=== PATIENT | male | born 1955 | race Two or more races ===

== ENCOUNTER 2024-05-03 13:53 | Outpatient (RCR) | payer MEDICARE, SELFPAY | END 2024-05-03 23:59 | disposition home or self-care (01) | LOC: CPTX 13:53 | PROVIDERS: PCP Student in an Organized Health Care Education/Training Program; Referring Provider Student in an Organized Health Care Education/Training Program; Visit Provider Student in an Organized Health Care Education/Training Program | DX: Z53.8 Procedure and treatment not carried out for other reasons (principal) ==

== ENCOUNTER → 2024-09-24 | Outpatient (CLI) | payer MEDICARE, SELFPAY ==
--- NOTE | 2024-09-24 12:20 | XR_ITS ---
Examination: Shoulder,left, 3 views Technique: Shoulder AP internal rotation, AP external rotation, Y view shoulder, 3 views Exam date and time :September 24, 2024 1345 hours INDICATIONS: Left shoulder pain beginning 2 years ago. FINDINGS: Prominent osteopenia Moderate narrowing glenohumeral joint No fracture or shoulder dislocation IMPRESSION: Moderate narrowing glenohumeral joint
== END | disposition home or self-care (01) ==
PROVIDERS: PCP Nurse Practitioner Family; Referring Provider Nurse Practitioner Family; Visit Provider Nurse Practitioner Family
DX: M25.812 Other specified joint disorders, left shoulder (principal)
CPT/HCPCS: 73030

== ENCOUNTER 2024-09-28 13:00 | Outpatient (RCR) | payer MEDICARE, SELFPAY ==
--- NOTE | 2024-09-14 13:12 | PT.OIERPT ---
PT OP Initial Eval Patient Information Outpatient Physical Therapy Treatment Date: 09/14/24 Visit Reasons: Cerebrovascular accident Medical Diagnosis: I69.354 Treatment Dx #1: CVA with L hemiplegia Start of Care: 09/14/24 Date of Onset: October 2022 Smoking Status Smoking Status: Never smoker Initial Assessment Subjective: Pt is 68 yr old male here with his caregiver who lives with him and helps with all ADL's, meals, etc. Caregiver says he can lift the L LE better since she started working with him. Pt can't move the L hand but can move the shoulder. He needs hand support to stand and transfer from W/C to bed. He uses bedside commode. Prior to CVA the pt was ambulatory and independent with ADL's. PMH: CVA, HTN, DM Pt goal: I want to get out of the W/C and do something with my life and take care of myself Objective: Transfers: Sit in W/C to mat table: modAx1 and gait belt Supine to sit: minAx1 on R side for LE management L ankle AROM: Resting in 30 deg of PF, unable to actively dorsiflex L knee AROM: Flexion: 90 deg Extension: from 90 deg resting to about -40 deg extension but can't hold isometrically against gravity Babinski: positive L Clonus: negative L UE: flaccid, no AROM Gait: NT due to L knee weakness HS strength: 3-/5 Quad strength: 3-/5 Assessment: Pt presentation consistent with CVA and L hemiplegia. L UE is flaccid and limited to about 90 deg FF and abduction with PROM. Pt has limited active ROM of L LE and is modAx1 with transfers without R hand support. With hand support he's minAx1. Pt?requires skilled therapy in order to need less assist with transfers and has fair rehab potential limited by flaccid L UE and paralysis of L LE. Short Term and Delinquent Notice Machine Operator Goals ? ? ? 1. Independent with HEP ? 2. Pt will transfer from supine to sit and W/C to chair stand pivot with ? minAx1 ? 3. Pt will demonstrate improved WB on L LE with knee immobilizer brace to take steps in parallel bars x30' with hand support Treatment Plan 1. Manual therapy 2. Therex? 3. Modalities as indicated, moist heat, ice, estim 4. Neuromuscular re-education? Frequency and Duration: 1-2x a week for 24 sessions plus the evaluation Certification Dates: 09/14/24 to 12/11/24 Procedure Charges OP PT Eval Mod Complex 30 minutes: Yes
--- NOTE | 2024-09-22 13:47 | PT.ODAYNRPT ---
PT Outpatient Daily Note OP Daily Note Outpatient Physical Therapy Treatment Date: 09/22/24 Visit Reasons: Cerebrovascular accident Subjective: Wants to try to walk Objective: NMR: ambulate with gait belt and R hand on parallel bars 2.5 laps x25' total Assessment: Pt used a knee immobilizer brace on L knee to avoid buckling and ambulated with hemiplegic gait and dec WB on L LE at first which improved with practice. Sit to stand transfers from WC in parallel bars requires min/modAx1 Plan: Continue per POC Length of Time (minutes) of Treatment: 30 Minutes Procedure Charges Neuro Re-Education 30 Minutes: Yes
--- NOTE | 2024-09-28 14:05 | PT.ODAYNRPT ---
PT Outpatient Daily Note OP Daily Note Outpatient Physical Therapy Treatment Date: 09/28/24 Visit Reasons: Cerebrovascular accident Subjective: Doesn't have knee immobilizer brace yet Objective: See F/S for therex Assessment: Sit to stand transfers from in parallel bars requires min/modAx1 and he uses R UE to pull up. Plan: Continue per POC Length of Time (minutes) of Treatment: 30 Minutes Procedure Charges Therapeutic Exercise 30 minutes: Yes
== END 2024-10-01 23:59 | disposition home or self-care (01) ==
LOC: CPTX 13:00
PROVIDERS: PCP Nurse Practitioner Family; Referring Provider Nurse Practitioner Family; Visit Provider Nurse Practitioner Family
DX: I69.354 Hemiplegia and hemiparesis following cerebral infarction affecting left non-dominant side (principal); I10 Essential (primary) hypertension; E11.9 Type 2 diabetes mellitus without complications
CPT/HCPCS: 97110; 97112; 97162

== ENCOUNTER 2024-10-26 13:00 | Outpatient (RCR) | payer MEDICARE, SELFPAY ==
--- NOTE | 2024-10-05 13:26 | PT.ODAYNRPT ---
PT Outpatient Daily Note OP Daily Note Outpatient Physical Therapy Treatment Date: 10/05/24 Visit Reasons: Cerebrovascular accident Subjective: Doesn't have knee immobilizer brace yet and he feels tired today Objective: See F/S for therex NMR: gait training in parallel bars x25' Assessment: Sit to stand transfers from WC in parallel bars requires min/modAx1 and he uses R UE to pull up. Step to hemiplegic gait with modAx1 for balance. Plan: Continue per POC Length of Time (minutes) of Treatment: 30 Minutes Procedure Charges Neuro Re-Education 30 Minutes: Yes
--- NOTE | 2024-10-12 13:38 | PT.ODAYNRPT ---
PT Outpatient Daily Note OP Daily Note Outpatient Physical Therapy Treatment Date: 10/12/24 Visit Reasons: Cerebrovascular accident Subjective: He has the knee immobilizer brace and wants to walk Objective: See F/S for therex NMR: gait training in parallel bars x25' Assessment: Sit to stand transfers from WC in parallel bars requires min/modAx1 and he uses R UE to pull up. Step to hemiplegic gait with modAx1 for balance. He ambulated 6 laps today which is 2 more than usual. The knee brace fits better and supports better to limit knee bending/buckling. Plan: Continue per POC Length of Time (minutes) of Treatment: 30 Minutes Procedure Charges Therapeutic Exercise 30 minutes: Yes
--- NOTE | 2024-10-26 13:57 | PT.ODAYNRPT ---
PT Outpatient Daily Note OP Daily Note Outpatient Physical Therapy Treatment Date: 10/26/24 Visit Reasons: Cerebrovascular accident Subjective: He has the knee immobilizer brace and wants to walk Objective: See F/S for therex NMR: gait training in parallel bars x25' Assessment: Sit to stand transfers from WC in parallel bars requires min/modAx1 and he uses R UE to pull up. Step to hemiplegic gait with modAx1 for balance. He ambulated 12 laps today which more than usual. The knee brace fits better and supports better to limit knee bending/buckling. He tried using the quad cane and a crutch without much success since he leans on the parallel bars and doesn't feel confident with those. Plan: Continue per POC Length of Time (minutes) of Treatment: 30 Minutes Procedure Charges Therapeutic Exercise 30 minutes: Yes
== END 2024-11-01 23:59 | disposition home or self-care (01) ==
LOC: CPTX 13:00
PROVIDERS: PCP Nurse Practitioner Family; Referring Provider Nurse Practitioner Family; Visit Provider Nurse Practitioner Family
DX: I69.354 Hemiplegia and hemiparesis following cerebral infarction affecting left non-dominant side (principal); I10 Essential (primary) hypertension; E11.9 Type 2 diabetes mellitus without complications
CPT/HCPCS: 97110; 97112

== ENCOUNTER 2024-11-02 13:19 | Outpatient (RCR) | payer MEDICARE, SELFPAY ==
--- NOTE | 2024-11-02 14:40 | PT.ODAYNRPT ---
PT Outpatient Daily Note OP Daily Note Outpatient Physical Therapy Treatment Date: 11/02/24 Visit Reasons: cva Subjective: He has the knee immobilizer brace and wants to walk Objective: See F/S for therex NMR: gait training in parallel bars x8 laps Assessment: Sit to stand transfers from WC in parallel bars requires min/modAx1 and he uses R UE to pull up. Step to hemiplegic gait with modAx1 for balance. He ambulated 8 laps today. The knee brace fits better and supports better to limit knee bending/buckling. He tried using the quad cane and a crutch last visit without much success since he leans on the parallel bars and doesn't feel confident with those. Plan: Continue per POC Length of Time (minutes) of Treatment: 30 Minutes Procedure Charges Neuro Re-Education 30 Minutes: Yes
--- NOTE | 2024-11-03 14:36 | PT.ODS1RPT ---
PT OP Progress/Discharge Note Date of Service: 11/03/24 Progress Note/DC Note Progress Note/Discharge Note: DC Note Patient Information Visit Reasons: cva Service Continue Service or Discharge: Discharge Discharge Date: 11/03/24 Status Objective: No treatment, no charges, just D/C note Assessment: Pt attended the eval and 6 Rx sessions and then we found out his insurance changed. This was confirmed with the pt and caregiver. He will need to be discharged at this time and he will need to use the new insurance if he wants to return to therapy. Plan: D/C
== END 2024-12-01 23:59 | disposition home or self-care (01) ==
LOC: CPTX 13:19
PROVIDERS: PCP Nurse Practitioner Family; Referring Provider Nurse Practitioner Family; Visit Provider Nurse Practitioner Family
DX: I69.354 Hemiplegia and hemiparesis following cerebral infarction affecting left non-dominant side (principal); I10 Essential (primary) hypertension; E11.9 Type 2 diabetes mellitus without complications
CPT/HCPCS: 97112

== ENCOUNTER → 2025-02-15 | Outpatient (CLI) | payer MEDICARE, SELFPAY ==
--- NOTE | 2025-02-15 12:59 | XR_ITS ---
Examination:Left hip AP, lateral, AP pelvis 3 views Technique: Hip AP lateral, AP pelvis, 3 views Exam date and time:February 15, 2025 1307 hours INDICATIONS: Left hip pain beginning one year ago FINDINGS: Mild left hip osteoarthritis Mild right hip osteoarthritis No hip or pelvic fractures IMPRESSION: Bilateral mild hip osteoarthritis.
== END | disposition home or self-care (01) ==
LOC: SDIM 12:42
PROVIDERS: PCP Internal Medicine; Referring Provider Internal Medicine; Visit Provider Internal Medicine
DX: M16.0 Bilateral primary osteoarthritis of hip (principal)
CPT/HCPCS: 73502

== ENCOUNTER → 2025-02-26 | Outpatient (CLI) | payer MEDICARE, SELFPAY ==
--- NOTE | 2025-02-26 13:15 | XR_ITS ---
Examination: MRI brain with intravenous contrast Date and time: February 26, 2025, 1407 hours INDICATIONS: Blurred vision numbness and weakness in the arms and feet dizziness post CVA 2022, CT brain scan October 12, 2022 large acute infarct right basal ganglia right frontal lobe with hemorrhagic transformation TECHNIQUE AND FINDINGS: Multiple axial sagittal coronal brain MRI images post intravenous administration 15 cc gadolinium Large area of encephalomalacia in the distribution of the right middle cerebral artery with mild ipsilateral ventricular dilatation No mass effect upon the ventricular system No effacement of sulcal markings No abnormal enhancing cerebellar or cerebral lesions Pituitary is not enlarged Fourth ventricle midline IMPRESSION: Large area of encephalomalacia in distribution of the right middle cerebral artery Follow-up brain MRI without contrast with best assess for recurrent acute ischemic change, as clinically warranted
== END | disposition home or self-care (01) ==
LOC: SMRI 12:53
PROVIDERS: Referring Provider Internal Medicine; Visit Provider Internal Medicine
DX: G93.89 Other specified disorders of brain (principal)
CPT/HCPCS: 70552; A9579

== ENCOUNTER → 2025-07-18 | Outpatient (CLI) | payer MEDICARE, SELFPAY ==
--- NOTE | 2025-07-18 15:00 | XR_ITS ---
Examination: MRI brain without intravenous contrast. Date and time of exam: July 18, 2025, 1545 hours, comparison February 26, 2025 INDICATIONS: Episodes of blurred vision and difficulty comprehending numbness in the left arm and feet and dizziness post stroke 2022 Technique: Multiple axial and sagittal images of the brain obtained. Siemens high-resolution 1.5 Eli short bore scanners utilized. Sagittal sections, T1-weighted, TR 500, TE 14, are performed. Axial sections proton-density and T2-weighted have been obtained. Inversion recovery axial images, TR 9, 260, TE 111, TI 2500. Diffusion weighted images, axial sections, TR 4800, TE 128, B value 1000 Axial sections, ADC map, TR 4800, TE 128 Findings: Enlargement of the sella turcica is not present. The optic chiasm and infundibular are not remarkable. Prepontine and interpeduncular cisterns are not enlarged. There is no localized enlargement of the medulla or ramírez. Fourth ventricle and cerebellar tonsils appear normal in position. No subacute area of hemorrhage density is seen. Mass in the cerebellopontine angle region is not evident. Globes symmetrical. Orbital musculature including medial lateral rectus muscles do not exhibit abnormality. Diffusion-weighted images demonstrate no focus of restricted diffusion. Increased white matter signal evident including large old infarct right middle cerebral artery distribution Mass effect upon the ventricular system is not identified. Impression: Negative for acute hemorrhage mass effect or midline shift No acute infarct Large old infarct right middle cerebral artery distribution
== END | disposition home or self-care (01) ==
LOC: SMRI 14:45
PROVIDERS: PCP Family Medicine; Referring Provider Nurse Practitioner Family; Visit Provider Nurse Practitioner Family
DX: G93.89 Other specified disorders of brain (principal); Z86.73 Personal history of transient ischemic attack (TIA), and cerebral infarction without residual deficits
CPT/HCPCS: 70551